=== PATIENT | male | born 1950 | race Caucasian/White ===

== ENCOUNTER 2023-01-11 09:31 | Inpatient (IN) | payer MEDICARE ==
[~2023-01-11] VITALS: Ht 162.6 cm; Wt 73.8 kg
[2023-01-11] MEDS ORDERED: ASPIRIN 325MG TAB PO ONE (10:00)
[2023-01-11] MEDS ORDERED: DILTIAZEM 25MG INJ IVP ONE (10:00)
[2023-01-11 10:16] LABS: BASOPHILS # (AUTO) 0.04 K/uL (0.00-0.20); BASOPHILS % (AUTO) 0.6 % (0.0-5.0); EOSINOPHILS # (AUTO) 0.05 K/uL (0.00-0.70); EOSINOPHILS % (AUTO) 0.7 % (0.0-8.0); IMMATURE GRANULOCYTE ABSOLUTE 0.02 K/uL (0-1); LYMPHOCYTES # (AUTO) 2.5 K/uL (1.0-4.8); LYMPHOCYTES % (AUTO) 34.5 % (21.0-51.0); MEAN CORPUSCULAR HEMOGLOBIN 33.1 pg (27.0-33.0); MEAN CORPUSCULAR HGB CONC 32.8 g/dL (32.0-36.0); MEAN CORPUSCULAR VOLUME 100.8 fL (79-99); MONOCYTES # (AUTO) 0.6 K/uL (0.1-1.0); NEUTROPHILS % (AUTO) 55.9 % (40.0-77.0); PLATELET COUNT (AUTO) 130 K/uL (130-400); RED BLOOD CELL COUNT(AUTO) 4.96 MIL/uL (4.50-6.20); RED CELL DISTRIBUTION WIDTH 13.7 % (11.0-15.5); WHITE BLOOD COUNT (AUTO) 7.2 K/uL (4.8-10.8)
[2023-01-11 10:29] LABS: APPEARANCE,URINE CLEAR (CLEAR); BILIRUBIN,URINE NEGATIVE (NEGATIVE); COLOR,URINE YELLOW (YELLOW); GLUCOSE, URINE (UA) NEGATIVE (NEGATIVE); KETONES,URINE NEGATIVE (NEGATIVE); LEUKOCYTE ESTERASE ,URINE NEGATIVE Leu/uL (NEGATIVE); NITRATE,URINE NEGATIVE (NEGATIVE); OCCULT BLOOD,URINE NEGATIVE (NEGATIVE); PROTEIN,URINE NEGATIVE (NEGATIVE); UROBILINOGEN,URINE 0.2 mg/dL (0.2-1.0)
[2023-01-11 10:30] LABS: CREATININE 0.8 mg/dL (0.5-1.5); POTASSIUM 4.4 mmol/L (3.5-5.1)
[2023-01-11] MEDS: DILTIAZEM 125 MG/25 ML INJ 125 MG in 0.9%NACL 100ML 100 ML IV SCH (10:35)
[2023-01-11 10:36] LABS: ALBUMIN 3.5 g/dL (3.5-5.0); BILIRUBIN,TOTAL 0.8 mg/dL (0.2-1.0); MAGNESIUM 1.8 mg/dL (1.80-2.40); TOTAL PROTEIN, SERUM 6.7 g/dL (6.0-8.3)
[2023-01-11 10:43] LABS: ADD UA MICROSCOPIC NO
[2023-01-11] MEDS ORDERED: POTASSIUM CHLORIDE 20MEQ/100ML 100 ML IV PRN ×2 (12:00)
[2023-01-11] MEDS ORDERED: DIPHENHYDRAMINE HCL 25 MG CAPSULE PO PRN (12:00)
[2023-01-11] MEDS ORDERED: DiphenhydrAMINE HCL 50 MG/ML VIAL IV PRN (12:00)
[2023-01-11] MEDS ORDERED: GUAIFENESIN-DM 200/20 MG 10 ML PO PRN (12:00)
[2023-01-11] MEDS ORDERED: NITROGLYCERIN 0.4 MG SL TAB SL PRN (12:00)
[2023-01-11] MEDS ORDERED: DEXTROSE 50%-WATER 50 ML DISP.SYRIN IV PRN (12:00)
[2023-01-11] MEDS ORDERED: DOCUSATE SODIUM 100 MG CAP PO PRN (12:00)
[2023-01-11] MEDS ORDERED: ZOLPIDEM TARTRATE 5 MG TAB PO PRN (12:00)
[2023-01-11] MEDS ORDERED: MAG/ALUM/SIMETH 30 ML UDCUP PO PRN (12:00)
[2023-01-11] MEDS ORDERED: LACTULOSE 20 GM/30 ML UDCUP PO PRN (12:00)
[2023-01-11] MEDS ORDERED: GLUCAGON 1MG KIT 1 MG ML IM PRN (12:00)
[2023-01-11] MEDS ORDERED: GUAIFENESIN SUGAR-FREE 100 MG/5 ML UDCUP PO PRN (12:00)
[2023-01-11] MEDS ORDERED: POTASSIUM CHLORIDE 10% ELIXIR 20 MEQ/15 ML UDCUP PO PRN (12:00)
[2023-01-11] MEDS ORDERED: KCL 20 MEQ ERTAB PO PRN (12:00)
[2023-01-11] MEDS ORDERED: ALPRAZOLAM 0.5 MG TABLET PO PRN (12:00)
[2023-01-11] MEDS ORDERED: METOPROLOL TARTRATE 1 MG/ML 5ML VIAL IV ONE (12:00)
[2023-01-11] MEDS ORDERED: MAGNESIUM 2GM PREMIX 50ML 50 ML IV PRN (12:00)
[2023-01-11] MEDS ORDERED: ONDANSETRON 4MG INJ IV PRN (12:00)
[2023-01-11] MEDS ORDERED: ACETAMINOPHEN 325 MG TAB PO PRN ×2 (12:00)
[2023-01-11] MEDS ORDERED: POLYETHYLENE GLYCOL 3350 17 GM POWD.PACK PO PRN (12:00)
[2023-01-11] MEDS ORDERED: HYDRALAZINE 25MG TABLET PO PRN (12:00)
[2023-01-11 12:59] LABS: INR 1.06 (0.85-1.15); PROTHROMBIN TIME 12.3 SEC (9.6-11.6)
[2023-01-11 13:00] LABS: PARTIAL THROMBOPLASTIN TIME 27.8 SEC (26.3-35.5)
[2023-01-11] MEDS: ENOXAPARIN SODIUM 80 MG/0.8 ML SQ SCH ×2 (13:21→21:48)
[2023-01-11 13:53] LABS: AMPHET/METH SCREEN,URINE NEGATIVE (NEGATIVE); BARBITURATE SCREEN, URINE NEGATIVE (NEGATIVE); BENZODIAZEPINES SCREEN,URINE NEGATIVE (NEGATIVE); CANNABINOID SCREEN,URINE NEGATIVE (NEGATIVE); COCAINE SCREEN,URINE NEGATIVE (NEGATIVE); OPIATE SCREEN,URINE NEGATIVE (NEGATIVE); PHENCYCLIDINE SCREEN,URINE NEGATIVE (NEGATIVE)
[2023-01-11 14:01] LABS: INFLUENZA TYPE A Negative For Type A (NEGATIVE); INFLUENZA TYPE B Negative For Type B (NEGATIVE)
[2023-01-11 14:07] LABS: SARS-CoV-2, RNA, NAAT NEGATIVE SARS CoV-2 (NEGATIVE)
[2023-01-11] MEDS: INSULIN HUMULIN R 100 UNIT/ML 3ML SQ SCH ×2 (16:30→20:19)
[2023-01-11] MEDS ORDERED: TIOT4MIS3 IH (16:44)
[2023-01-11] MEDS ORDERED: DOXA2TAB2 PO (16:44)
[2023-01-11] MEDS ORDERED: ATOR10TA69 PO (16:44)
[2023-01-11] MEDS ORDERED: LOSA50TA64 PO (16:44)
[2023-01-11] MEDS ORDERED: IPRATROPIUM 0.5 MG/2.5 ML INH IH SCH (17:00)
[2023-01-11 17:25] VITALS: BP 114/60; PULSE 89; RESP 16
[2023-01-11 18:00] VITALS: O2SAT 95
[2023-01-11] MEDS: IPRATROPIUM 0.5 MG/2.5 ML INH IH SCH (19:29)
[2023-01-11] MEDS: BUDESONIDE 0.5 MG/2 ML INH IH SCH (19:29)
[2023-01-11 19:30] VITALS: O2SAT 94
[2023-01-11 19:39] VITALS: PULSE 91; RESP 18
[2023-01-11 19:40] VITALS: BP 118/61; PULSE 91; RESP 18
[2023-01-11] MEDS: FAMOTIDINE 20MG TAB PO SCH (21:48)
[2023-01-11 23:39] VITALS: BP 138/79; PULSE 78; RESP 18
[2023-01-12] VITALS (10 sets, daily range): BP systolic 118–141; BP diastolic 70–85; PULSE 81–116; RESP 18–20; O2SAT 92–96
[2023-01-12 04:01] LABS: HEMOGLOBIN A1C 6.1 % (4.0-6.0)
[2023-01-12] MEDS: INSULIN HUMULIN R 100 UNIT/ML 3ML SQ SCH ×4 (05:43→21:00)
[2023-01-12] MEDS: IPRATROPIUM 0.5 MG/2.5 ML INH IH SCH ×3 (07:18→23:39)
[2023-01-12] MEDS: BUDESONIDE 0.5 MG/2 ML INH IH SCH ×2 (07:18→19:32)
[2023-01-12 08:34] LABS: CREATININE 0.8 mg/dL (0.5-1.5); POTASSIUM 4.2 mmol/L (3.5-5.1)
[2023-01-12] MEDS: FAMOTIDINE 20MG TAB PO SCH ×2 (08:50→22:09)
[2023-01-12] MEDS: ATORVASTATIN 10 MG TABLET PO SCH (08:50)
[2023-01-12] MEDS: DOXAZOSIN MESYLATE 2 MG TABLET PO SCH (08:50)
[2023-01-12] MEDS: ENOXAPARIN SODIUM 80 MG/0.8 ML SQ SCH (08:51)
[2023-01-12] MEDS ORDERED: LOSARTAN 50 MG TABLET PO SCH (09:00)
[2023-01-12] MEDS ORDERED: METOPROLOL TARTRATE 25 MG TAB PO ONE (14:00)
[2023-01-12] MEDS ORDERED: DILTIAZEM 25MG INJ IVP ONE (14:00)
[2023-01-12] MEDS: DILTIAZEM 125 MG/25 ML INJ 125 MG in 0.9%NACL 100ML 100 ML IV SCH (14:30)
[2023-01-12 15:50] LABS: MAGNESIUM 2.2 mg/dL (1.80-2.40); POTASSIUM 4.7 mmol/L (3.5-5.1)
[2023-01-12] MEDS: PREDNISONE 20 MG TABLET PO SCH ×2 (17:03→22:11)
[2023-01-12] MEDS ORDERED: ONDANSETRON 4MG TABLET PO PRN (19:00)
[2023-01-12] MEDS ORDERED: METOPROLOL TARTRATE 25 MG TAB PO SCH (21:00)
[2023-01-12] MEDS: DOXYCYCLINE HYCLATE 100 MG TABLET PO SCH (22:06)
[2023-01-12] MEDS: APIXABAN 5 MG TABLET PO SCH (22:07)
[2023-01-12] MEDS: METOPROLOL TARTRATE 25 MG TAB PO SCH (22:09)
[2023-01-12] MEDS: SACUBITRIL/VALSARTAN 1 EACH TABLET PO SCH (22:09)
[2023-01-13] VITALS (15 sets, daily range): BP systolic 94–145; BP diastolic 51–90; PULSE 62–92; RESP 18–22; O2SAT 93–95
[2023-01-13 03:40] LABS: HEMATOCRIT 47.9 % (42-54); MEAN CORPUSCULAR HEMOGLOBIN 33.5 pg (27.0-33.0); MEAN CORPUSCULAR HGB CONC 32.8 g/dL (32.0-36.0); MEAN CORPUSCULAR VOLUME 102.1 fL (79-99); RED BLOOD CELL COUNT(AUTO) 4.69 MIL/uL (4.50-6.20); RED CELL DISTRIBUTION WIDTH 13.6 % (11.0-15.5); WHITE BLOOD COUNT (AUTO) 6.3 K/uL (4.8-10.8)
[2023-01-13 04:08] LABS: ALBUMIN 3.2 g/dL (3.5-5.0); BILIRUBIN,TOTAL 0.5 mg/dL (0.2-1.0); CREATININE 0.8 mg/dL (0.5-1.5); MAGNESIUM 2.1 mg/dL (1.80-2.40); PHOSPHORUS 3.5 mg/dL (2.5-4.9); POTASSIUM 4.6 mmol/L (3.5-5.1); THYROID STIMULATING HORMONE 3.25 uIU/mL (0.36-3.74); TOTAL PROTEIN, SERUM 6.5 g/dL (6.0-8.3)
[2023-01-13 04:11] LABS: ABG HCO3 21.2 mmol/L (21.0-28.0); ABG OXYGEN SATURATION 93.7 % (95.0-99.0); ABG PCO2 32 mmHg (35-48); ABG PH 7.438 (7.35-7.450); DEVICE COMMENT RN; PO2, ARTERIAL BG 65.2 mmHg (83.0-108.0); VENT MODE, BG LR RA (ROOM AIR)
[2023-01-13] MEDS: INSULIN HUMULIN R 100 UNIT/ML 3ML SQ SCH ×4 (05:40→21:00)
[2023-01-13] MEDS: IPRATROPIUM 0.5 MG/2.5 ML INH IH SCH ×4 (07:24→23:52)
[2023-01-13] MEDS: BUDESONIDE 0.5 MG/2 ML INH IH SCH ×2 (07:24→18:56)
[2023-01-13] MEDS: DOXAZOSIN MESYLATE 2 MG TABLET PO SCH (09:03)
[2023-01-13] MEDS: PREDNISONE 20 MG TABLET PO SCH ×2 (09:03→21:13)
[2023-01-13] MEDS: ATORVASTATIN 10 MG TABLET PO SCH (09:03)
[2023-01-13] MEDS: FAMOTIDINE 20MG TAB PO SCH ×2 (09:03→21:13)
[2023-01-13] MEDS: METOPROLOL TARTRATE 25 MG TAB PO SCH ×2 (09:03→21:09)
[2023-01-13] MEDS: FUROSEMIDE 20MG VIAL IV SCH (09:03)
[2023-01-13] MEDS: EMPAGLIFLOZIN 10MG TABLET PO SCH (09:04)
[2023-01-13] MEDS: APIXABAN 5 MG TABLET PO SCH ×2 (09:04→21:12)
[2023-01-13] MEDS: SACUBITRIL/VALSARTAN 1 EACH TABLET PO SCH ×2 (09:04→21:10)
[2023-01-13] MEDS: SPIRONOLACTONE 25 MG TAB PO SCH (09:04)
[2023-01-13] MEDS: DOXYCYCLINE HYCLATE 100 MG TABLET PO SCH ×2 (14:27→21:12)
[2023-01-13] MEDS ORDERED: Vitamin B Complex/Vit C/Folic Acid PO ONE (22:00)
[2023-01-13] MEDS ORDERED: THIAMINE HCL 100 MG TABLET PO ONE (22:00)
[2023-01-14] VITALS (8 sets, daily range): BP systolic 110–132; BP diastolic 62–77; PULSE 59–110; RESP 16–20; O2SAT 91–95
[2023-01-14 04:20] LABS: BASOPHILS # (AUTO) 0.02 K/uL (0.00-0.20); BASOPHILS % (AUTO) 0.2 % (0.0-5.0); HEMATOCRIT 50.2 % (42-54); IMMATURE GRANULOCYTE ABSOLUTE 0.03 K/uL (0-1); LYMPHOCYTES # (AUTO) 1.4 K/uL (1.0-4.8); LYMPHOCYTES % (AUTO) 14.3 % (21.0-51.0); MEAN CORPUSCULAR HEMOGLOBIN 33.3 pg (27.0-33.0); MEAN CORPUSCULAR HGB CONC 33.3 g/dL (32.0-36.0); MONOCYTES # (AUTO) 0.3 K/uL (0.1-1.0); MONOCYTES % (AUTO) 2.7 % (3.0-13.0); NEUTROPHILS # (AUTO) 7.9 K/uL (1.8-7.7); NEUTROPHILS % (AUTO) 82.5 % (40.0-77.0); PLATELET COUNT (AUTO) 159 K/uL (130-400); RED BLOOD CELL COUNT(AUTO) 5.02 MIL/uL (4.50-6.20); RED CELL DISTRIBUTION WIDTH 13.7 % (11.0-15.5); WHITE BLOOD COUNT (AUTO) 9.6 K/uL (4.8-10.8)
[2023-01-14 04:41] LABS: CREATININE 0.8 mg/dL (0.5-1.5); MAGNESIUM 2.1 mg/dL (1.80-2.40); POTASSIUM 4.6 mmol/L (3.5-5.1)
[2023-01-14] MEDS: IPRATROPIUM 0.5 MG/2.5 ML INH IH SCH ×2 (06:34→11:14)
[2023-01-14] MEDS: BUDESONIDE 0.5 MG/2 ML INH IH SCH (06:34)
[2023-01-14] MEDS: INSULIN HUMULIN R 100 UNIT/ML 3ML SQ SCH ×2 (07:30→11:18)
[2023-01-14] MEDS ORDERED: SACU1TAB PO (08:47)
[2023-01-14] MEDS ORDERED: ATOR10 PO (08:47)
[2023-01-14] MEDS ORDERED: APIX5TAB PO (08:47)
[2023-01-14] MEDS ORDERED: METO-408 PO (08:47)
[2023-01-14] MEDS ORDERED: SPIR25TA6 PO (08:47)
[2023-01-14] MEDS ORDERED: DAPA10TA PO (08:47)
[2023-01-14] MEDS ORDERED: THIAMINE HCL 100 MG TABLET PO SCH (09:00)
[2023-01-14] MEDS ORDERED: Vitamin B Complex/Vit C/Folic Acid PO SCH (09:00)
[2023-01-14] MEDS: SPIRONOLACTONE 25 MG TAB PO SCH (09:56)
[2023-01-14] MEDS: PREDNISONE 20 MG TABLET PO SCH (09:56)
[2023-01-14] MEDS: METOPROLOL TARTRATE 25 MG TAB PO SCH (09:57)
[2023-01-14] MEDS: ATORVASTATIN 10 MG TABLET PO SCH (09:58)
[2023-01-14] MEDS: FAMOTIDINE 20MG TAB PO SCH (09:58)
[2023-01-14] MEDS: DOXAZOSIN MESYLATE 2 MG TABLET PO SCH (09:58)
[2023-01-14] MEDS: SACUBITRIL/VALSARTAN 1 EACH TABLET PO SCH (09:58)
[2023-01-14] MEDS: EMPAGLIFLOZIN 10MG TABLET PO SCH (09:58)
[2023-01-14] MEDS: DOXYCYCLINE HYCLATE 100 MG TABLET PO SCH (09:58)
[2023-01-14] MEDS: APIXABAN 5 MG TABLET PO SCH (09:58)
[2023-01-14] MEDS: FUROSEMIDE 20MG VIAL IV SCH (10:01)
== END 2023-01-14 14:15 | disposition home or self-care (01) | DRG 308 ==
LOC: EDH 09:31 → EDHIP 11:57 → 2DH 16:53
PROVIDERS: ADMIT Internal Medicine; ATTEND Internal Medicine
DX: I48.91 Unspecified atrial fibrillation (principal); I50.43 Acute on chronic combined systolic (congestive) and diastolic (congestive) heart failure; J98.11 Atelectasis; Z20.822 Contact with and (suspected) exposure to COVID-19; G25.3 Myoclonus; F17.210 Nicotine dependence, cigarettes, uncomplicated; G47.10 Hypersomnia, unspecified; G47.33 Obstructive sleep apnea (adult) (pediatric); I11.0 Hypertensive heart disease with heart failure; I48.92 Unspecified atrial flutter; E78.00 Pure hypercholesterolemia, unspecified; E83.42 Hypomagnesemia; N40.1 Benign prostatic hyperplasia with lower urinary tract symptoms; R35.1 Nocturia; Z82.49 Family history of ischemic heart disease and other diseases of the circulatory system; Z83.3 Family history of diabetes mellitus; Z79.899 Other long term (current) drug therapy
CPT/HCPCS: 36415; 36600; 71045; 71250; 80048; 80053; 80305; 81003; 82550; 82803; 82948; 83036; 83605; 83735; 83880; 84100; 84132; 84443; 84484; 85025; 85027; 85610; 85730; 87635; 87804; 93005; 93306; 94640; 94664; 94760; 96365; 96375; G0378; J1650; J1940; J3490

== ENCOUNTER → 2023-02-02 | Outpatient (CLI) | payer MEDICARE ==
[~2023-02-02] MED LIST: APIX5TAB PO; ATOR10 PO; DAPA10TA PO; DOXA2TAB2 PO; LOSA50TA64 PO; METO-408 PO; SACU1TAB PO; SPIR25TA6 PO; TIOT4MIS3 IH
[2023-02-02 12:48] LABS: CREATININE 0.9 mg/dL (0.5-1.5); MAGNESIUM 2.1 mg/dL (1.80-2.40); POTASSIUM 4.3 mmol/L (3.5-5.1)
== END | disposition home or self-care (01) ==
LOC: LAB 09:39
PROVIDERS: ATTEND Internal Medicine Cardiovascular Disease
DX: I50.22 Chronic systolic (congestive) heart failure (principal); I48.92 Unspecified atrial flutter
CPT/HCPCS: 36415; 80048; 83735; 83880

== ENCOUNTER 2023-06-21 05:58 | Day surgery (SDC) | payer MEDICARE ==
[2023-06-16 09:04] LABS: BASOPHILS # (AUTO) 0.04 K/uL (0.00-0.20); BASOPHILS % (AUTO) 0.5 % (0.0-5.0); EOSINOPHILS # (AUTO) 0.11 K/uL (0.00-0.70); EOSINOPHILS % (AUTO) 1.5 % (0.0-8.0); HEMATOCRIT 50.9 % (42-54); IMMATURE GRANULOCYTE ABSOLUTE 0.03 K/uL (0-1); LYMPHOCYTES # (AUTO) 2.7 K/uL (1.0-4.8); LYMPHOCYTES % (AUTO) 37.3 % (21.0-51.0); MEAN CORPUSCULAR HEMOGLOBIN 32.3 pg (27.0-33.0); MEAN CORPUSCULAR HGB CONC 32.6 g/dL (32.0-36.0); MONOCYTES # (AUTO) 0.7 K/uL (0.1-1.0); MONOCYTES % (AUTO) 9.1 % (3.0-13.0); NEUTROPHILS # (AUTO) 3.7 K/uL (1.8-7.7); NEUTROPHILS % (AUTO) 51.2 % (40.0-77.0); PLATELET COUNT (AUTO) 153 K/uL (130-400); RED BLOOD CELL COUNT(AUTO) 5.14 MIL/uL (4.50-6.20); RED CELL DISTRIBUTION WIDTH 13.5 % (11.0-15.5); WHITE BLOOD COUNT (AUTO) 7.3 K/uL (4.8-10.8)
[2023-06-16 09:11] LABS: CREATININE 0.8 mg/dL (0.5-1.3); POTASSIUM 4.6 mmol/L (3.5-5.1)
[2023-06-16 09:19] LABS: INR 1.06 (0.85-1.15); PROTHROMBIN TIME 12.5 SEC (9.6-11.6)
[2023-06-16 09:20] VITALS: BP 94/57; PULSE 81; RESP 16
[2023-06-16 09:20] LABS: PARTIAL THROMBOPLASTIN TIME 34.8 SEC (26.3-35.5)
[2023-06-21] VITALS (8 sets, daily range): BP systolic 94–116; BP diastolic 53–74; PULSE 67–90; RESP 14–17
[~2023-06-21] VITALS: Ht 162.6 cm; Wt 74.6 kg
[~2023-06-21 05:58] MED LIST changes: -LOSA50TA64 PO; +METO-391 PO; -METO-408 PO
[2023-06-21] MEDS ORDERED: LIDOCAINE HCL 400MG/20ML VIAL ONE (07:50)
[2023-06-21] MEDS ORDERED: MIDAZOLAM HCL 1 MG/ML 2ML VIAL ONE ×2 (07:50→08:43)
[2023-06-21] MEDS ORDERED: HEPARIN 10,000 UNIT/10ML (1,000 UNIT/ML) VIAL ONE (07:50)
[2023-06-21] MEDS ORDERED: MEPERIDINE-PF 25 MG/ML SYG ONE ×2 (07:50→08:43)
[2023-06-21] MEDS: 0.9%NACL 1000ML 1,000 ML IV ONE (08:10)
== END 2023-06-21 13:25 | disposition home or self-care (01) ==
LOC: DAH 05:58
PROVIDERS: ATTEND Internal Medicine Cardiovascular Disease
DX: I48.92 Unspecified atrial flutter (principal); I42.0 Dilated cardiomyopathy; I48.0 Paroxysmal atrial fibrillation; I11.0 Hypertensive heart disease with heart failure; I50.41 Acute combined systolic (congestive) and diastolic (congestive) heart failure; J44.9 Chronic obstructive pulmonary disease, unspecified; E78.5 Hyperlipidemia, unspecified; F17.210 Nicotine dependence, cigarettes, uncomplicated; Z79.899 Other long term (current) drug therapy; Z98.890 Other specified postprocedural states
CPT/HCPCS: 80048; 85025; 85610; 85730; 36415; 93005; 93653; 82948; C1894 ×2; C1732 ×2; A4649 ×2; J3490; J7030; J1644 ×2; J2250 ×2; J2175 ×2; A4215; A4222; A4221; A4663; A4216; A4606; A4223 ×3; 99156; 99157

== ENCOUNTER → 2024-05-29 | Outpatient (CLI) | payer MEDICARE ==
[2024-05-29 12:52] LABS: ALBUMIN 3.8 g/dL (3.5-5.0); BILIRUBIN,TOTAL 0.7 mg/dL (0.2-1.0); CREATININE 0.8 mg/dL (0.5-1.3); MAGNESIUM 2.2 mg/dL (1.80-2.40); POTASSIUM 4.6 mmol/L (3.5-5.1); TOTAL PROTEIN, SERUM 7.4 g/dL (6.0-8.3)
== END | disposition home or self-care (01) ==
LOC: LAB 08:22
PROVIDERS: ATTEND Internal Medicine Cardiovascular Disease
DX: I11.0 Hypertensive heart disease with heart failure (principal); I50.22 Chronic systolic (congestive) heart failure
CPT/HCPCS: 36415; 80053; 80061; 83735; 83880